=== PATIENT | female | born 1990 | race American Indian/Alaskan Native ===

== ENCOUNTER 2017-06-26 17:30 | Emergency (ER) | payer MEDICAID ==
[2017-06-26] MEDS ORDERED: TYLENOL PO ONE (21:32)
[2017-06-26] MEDS ORDERED: D5NS 1,000 ML IV SCH (22:00)
[2017-06-26 22:48] VITALS: BP 120/69
[2017-06-26 23:30] LABS: Bilirubin,Urine NEG (Negative); Blood,Urine NEG (Negative); Color,Urine Straw (Yellow); Mucus,Urine FEW /HPF; Protein,Urine <15 mg/dL mg/dL (Negative); Urobilinogen,Urine < 2.0 mg/dL (<2.0)
--- NOTE | 2017-06-27 00:27 | Emergency Department Report ---
ED Headache HPI - General Chief Complaint: Headache Stated Complaint: HEADACHE Time Seen by Provider: 06/26/17 21:16 - History of Present Illness Initial Comments: Patient is a 27-year-old Citizen Of The [place] female who is 16 weeks who is presenting with headaches. Patient states that she's had headaches for the last several days. Patient states there is no photophobia and nausea vomiting. Patient has with her had episodes of vomiting for the last several weeks. Patient also recently diagnosed with a UTI was taken several of the Macrobid because of nausea. Patient states these pills were making her feel worse. Patient states the headache is intense in severity global and throbbing. Regarding the patient's patient denies any vaginal bleeding or vaginal discharge or spotting or dysuria at this time Allergies/Adverse Reactions: Allergies No Known Allergies Allergy (Unverified 06/26/17 17:32) Home Medications: Ambulatory Orders Cephalexin [Keflex] 500 mg PO Q12HR 5 Days cap 06/27/17 ED Review of Systems ROS: Stated complaint: HEADACHE Other details as noted in HPI Comment: All other systems reviewed and negative ED Past Medical Hx - Past Medical History Previous Medical History?: No - Surgical History Past Surgical History?: Yes Additional Surgical History: x 2 - Social History Smoking Status: Never Smoker - Medications Home Medications: Home Medications Medication Instructions Recorded Confirmed Last Taken Type Cephalexin [Keflex] 500 mg PO Q12HR 5 Days cap 06/27/17 Unknown Rx ED Physical Exam - General Limitations: No Limitations General appearance: alert, in no apparent distress - Head Head exam: Present: atraumatic, normocephalic - Eye Eye exam: Present: normal appearance - ENT ENT exam: Present: mucous membranes moist - Neck Neck exam: Present: normal inspection - Respiratory Respiratory exam: Present: normal lung sounds bilaterally. Absent: respiratory distress - Cardiovascular Cardiovascular Exam: Present: regular rate, normal rhythm. Absent: systolic murmur, diastolic murmur, rubs, gallop - GI/Abdominal GI/Abdominal exam: Present: soft, normal bowel sounds - Extremities Exam Extremities exam: Present: normal inspection - Back Exam Back exam: Present: normal inspection - Neurological Exam Neurological exam: Present: alert, oriented X3 - Psychiatric Psychiatric exam: Present: normal affect, normal mood - Skin Skin exam: Present: warm, dry, intact, normal color. Absent: rash ED Course Vital Signs 06/26/17 06/26/17 17:32 22:47 Temperature 98.9 F 98.0 F Pulse Rate 92 H 96 H Respiratory 18 20 Rate Blood Pressure 116/71 Blood Pressure 120/69 [Left] O2 Sat by Pulse 100 100 Oximetry ED Medical Decision Making - Lab Data Lab Results 06/26/17 Range/Units 22:46 Urine Color Straw (Yellow) Urine Turbidity Clear (Clear) Urine pH 7.0 (5.0-7.0) Ur Specific [place] 1.008 (1.003-1.030) Urine Protein <15 mg/dl (Negative) mg/dL Urine Glucose (UA) >=500 (Negative) mg/dL Urine Ketones Neg (Negative) mg/dL Urine Blood Neg (Negative) Urine Nitrite Neg (Negative) Urine Bilirubin Neg (Negative) Urine Urobilinogen < 2.0 (<2.0) mg/dL Ur Leukocyte Esterase Tr (Negative) Urine WBC (Auto) 1.0 (0.0-6.0) /HPF Urine RBC (Auto) 3.0 (0.0-6.0) /HPF U Epithel Cells (Auto) 6.0 (0-13.0) /HPF Urine Mucus Few /HPF - Medical Decision Making Patient is 27-year-old Citizen Of [place] female who has been having multiple episodes of vomiting up until today was presented with a headache. Patient will be given a bag of D5 normal saline is presumed the patient has some ketones. Patient also had her blow her urine rechecked for infection there is some trace leuk esterase present. Patient will be switched to Keflex for an additional 5 days. After IV fluids patient is feeling better like to be discharged home. Critical care attestation.: If time is entered above; I have spent that time in minutes in the direct care of this critically ill patient, excluding procedure time. ED Disposition Clinical Impression: Headache Qualifiers: Headache type: unspecified Headache chronicity pattern: acute headache Intractability: not intractable Qualified Code(s): R51 - Headache UTI in Qualifiers: Trimester: second trimester Qualified Code(s): O23.42 - Unspecified infection of urinary tract in , second trimester Disposition: DC-01 TO HOME OR SELFCARE Is pt being admited?: No Does the pt Need Aspirin: No Condition: Stable Instructions: Urinary Tract Infection in Women (ED), Tension Headache (ED) Prescriptions: Cephalexin [Keflex] 500 mg PO Q12HR 5 Days cap Referrals: PRIMARY CARE, [Primary Care Provider] - 3-5 Days
== END 2017-06-27 00:37 | disposition home or self-care (01) ==
LOC: ED 17:30
DX: O26.892 Other specified pregnancy related conditions, second trimester (principal); R51 Headache; O23.42 Unspecified infection of urinary tract in pregnancy, second trimester; Z3A.16 16 weeks gestation of pregnancy
CPT/HCPCS: 81001; 96360; 99283; J7042

== ENCOUNTER 2017-08-07 09:47 | Outpatient (CLI) | payer MEDICAID ==
[2017-08-07] MEDS ORDERED: LACTATED RINGERS 500 ML IV ONE (10:17)
[2017-08-07] MEDS ORDERED: CELESTONE SOLUSPAN IM ONE (11:00)
[2017-08-07 11:32] VITALS: BP 110/67
== END 2017-08-07 12:01 | disposition home or self-care (01) ==
LOC: TRG 09:47
PROVIDERS: ATTEND Obstetrics & Gynecology
DX: O47.02 False labor before 37 completed weeks of gestation, second trimester (principal); Z3A.22 22 weeks gestation of pregnancy
CPT/HCPCS: 96372; J0702

== ENCOUNTER 2017-08-08 12:23 | Outpatient (CLI) | payer MEDICAID ==
[2017-08-08] MEDS ORDERED: CELESTONE SOLUSPAN IM ONE ×2 (12:42→12:44)
[2017-08-08] MEDS ORDERED: LACTATED RINGERS 500 ML IV ONE (12:51)
== END 2017-08-08 12:40 | disposition home or self-care (01) ==
LOC: TRG 12:23
PROVIDERS: ATTEND Obstetrics & Gynecology
DX: O47.02 False labor before 37 completed weeks of gestation, second trimester (principal); Z3A.22 22 weeks gestation of pregnancy
CPT/HCPCS: 96372; J0702

== ENCOUNTER 2017-08-19 11:32 | Inpatient (IN) | payer MEDICAID ==
[2017-08-19] MEDS ORDERED: LACTATED RINGERS 500 ML IV ONE (12:21)
[2017-08-19] MEDS ORDERED: LACTATED RINGERS 1,000 ML ONE ×2 (13:52)
[2017-08-19] MEDS ORDERED: TYLENOL PO PRN (14:18)
[2017-08-19] MEDS ORDERED: LACTATED RINGERS 1,000 ML IV ONE (14:18)
[2017-08-19] MEDS ORDERED: COLACE PO PRN (14:18)
--- NOTE | 2017-08-19 14:43 | History and Physical Report ---
History of Present Illness Date of examination: 08/19/17 Chief complaint: Twin Gestation with iugr and oligohydramnios History of present illness: Direct admit from [facility] for 24week twin gestation with oligohydramnios and IUGR both babies. Patient now states ?leaking for 3 weeks. She was noted to have 3+ urine protein at her [facility] visit on 08/16/2017. She completed a 24h urine specimen yesterday and had PIH bloodwork performed. Urine TP is pending, PIH labs were normal yesterday. Today she was noted to have elevated BP's at [facility]'s office today. Past History : 3 Term Births: 0 Para: 0 Aborta: 2 Elect. Ab: 2 # 1 Delivery date: 03/29/2012 Delivery type: EAB # 2 Delivery date: 03/29/2014 Delivery type: EAB Past Medical History: negative Past Surgical History: negative Past Medical History Anesthesia Complications: negative Anemia: negative Autoimmune Disorder: negative Bleeding Disorder: negative Blood Transfusions: negative Breast Disease: negative Diabetes: negative Heart Disease: negative Hypertension: negative Hepatitis/Liver Disease: negative Kidney Disease/UTI: negative Neurologic/Epilepsy/Migraines: negative Phlebitis/Varicosities: negative Psychiatric: negative Pulmonary Disease/Asthma: negative Thyroid Disease: negative Hospitalizations: negative Surgery (Non-digital marketing assistant): negative Infection History Hx of STD: none HIV Risk Eval: low risk Hepatitis B Risk Eval: low risk Personal hx. of genital herpes: no Partner hx. of genital herpes: no Rash, Viral, or Febrile illness since last LMP? no Varicella/Chicken Pox Status: Previous Disease TB Risk: no Genetic History Congenital Heart Defect: Mom: no Dad: no Nupur Disease: Mom: no Dad: no Thalassemia Mom: no Dad: no Neural Tube Defect Mom: no Dad: no Down's Syndrome Mom: no Dad: no Carlos-Sachs Mom: no Dad: no Sickle Cell Disease/Trait Mom: yes Dad: unknown Hemophilia Mom: no Dad: no Muscular Dystrophy Mom: no Dad: no Cystic Fibrosis Mom: no Dad: no Door Chorea Mom: no Dad: no Mental Retardation Mom: no Dad: no Fragile X Mom: no Dad: no Other Genetic/Chromosomal Disorder Mom: no Dad: no Child w/other defect Mom: no Dad: no Enviromental Exposures Xray Exposure: no Medication, drug, or alcohol use since LMP: no Chemical/Other Exposure: no Exposure to Cat Liter: no Hx of Parvovirus (Fifth Disease): no Active Medications (reviewed today): None Current Allergies (reviewed today): No known allergies Past History - Obstetrical History Expected Date of Delivery: 12/06/17 Actual Gestation: 24 Week(s) 3 Day(s) : 3 Medications and Allergies Allergies Allergy/AdvReac Type Severity Reaction Status Date / Time No Known Allergies Allergy Unverified 06/26/17 17:32 Home Medications Medication Instructions Recorded Confirmed Last Taken Type No Known Home Medications [No 08/07/17 08/07/17 Unknown History Reported Home Medications] Active Meds: Active Medications Acetaminophen (Tylenol) 650 mg PO Q4H PRN PRN Reason: Pain MILD(1-3)/Fever >100.5/MILLER Docusate Sodium (Colace) 100 mg PO Q12H PRN PRN Reason: Constipation Lactated Ringer's (Lactated Ringers) 1,000 mls @ 150 mls/hr IV DIRECT JUANITA Lactated Ringer's (Lactated Ringers) 1,000 mls @ 999 mls/hr IV BOLUS ONE Stop: 08/19/17 15:18 Multivitamins/Iron/Calcium ( Vitamin) 1 each PO QDAY JUANITA Review of Systems All systems: negative Genitourinary: vaginal discharge, leakage of fluid, no vaginal bleeding, no pelvic pain, no contractions - Physical Exam Breasts: Positive: deferred Cardiovascular: Regular rate Lungs: Positive: Clear to auscultation, Normal air movement Abdomen: Positive: normal appearance, soft. Negative: tenderness, guarding Genitourinary (Female): Positive: normal external genitalia, normal perenium Vulva: both: normal Vagina: Positive: discharge (+bv by wet prep), other (negative pool; negative fern. ) Cervix: Negative: lesion Uterus: Positive: enlarged. Negative: tender Extremities: Positive: normal Deep Tendon Reflex Grade: Normal +2 - Obstetrical FHR: auscultation normal Results Result Diagrams: 08/19/17 13:30 08/19/17 13:30 All other labs normal. Ultrasound: report reviewed (from [facility]) Assessment and Plan - Patient Problems (1) 24 weeks gestation of Current Visit: Yes Status: Acute (2) Twin gestation, dichorionic diamniotic Current Visit: Yes Status: Acute Qualifiers: Trimester: second trimester Qualified Code(s): O30.042 - Twin , dichorionic/diamniotic, second trimester (3) Elevated blood pressure complicating , antepartum Current Visit: Yes Status: Acute Plan to address problem: 24h urine protein pending from [facility]'s office repeat PIH labs today watch BP's closely (4) IUGR (intrauterine growth retardation) Current Visit: Yes Status: Acute Plan to address problem: [facility] Received steroids 08/07/2017, rescue course not recommended at this time [facility] visit 08/16/2017 EFW TWIN A: 379g; <1% EFW Twin B: 505g 3% NICU consult pending Extreme prematurity complicated by IUGR and oligohydramnios discussed. She is aware of difficulties and limitations with continuous monitoring. She desires intermittent monitoring at this time. Plan of care explained, questions encouraged and answered. She voiced understanding and agrees with plan of care. (5) Oligohydramnios in navarrete in second trimester Current Visit: Yes Status: Acute Plan to address problem: No evidence of ROM (6) Bacterial vaginosis Current Visit: Yes Status: Acute Plan to address problem: Start flagyl
[2017-08-19 14:51] LABS: Hematocrit 29.3 % (30.3-42.9); Hemoglobin 9.8 gm/dl (10.1-14.3); Mean Corpuscular HGB Conc 33 % (30-34); Mean Corpuscular Hemoglobin 27 pg (28-32); Mean Corpuscular Volume 82 fl (79-97); Platelet Count 274 K/mm3 (140-440); Red Blood Count 3.58 M/mm3 (3.65-5.03); Red Cell Distribution Width 14.7 % (13.2-15.2)
[2017-08-19] MEDS ORDERED: LACTATED RINGERS 1,000 ML IV SCH (15:00)
[2017-08-19 15:11] LABS: Alanine Aminotransferase 8 units/L (7-56); Uric Acid 5.8 mg/dL (3.5-7.6)
[2017-08-19] MEDS: FLAGYL PO SCH (21:56)
[2017-08-20] MEDS: LACTATED RINGERS 1,000 ML IV SCH ×2 (02:05→13:03)
[2017-08-20] MEDS: FLAGYL PO SCH ×2 (05:50→16:27)
--- NOTE | 2017-08-20 07:12 | Consultation ---
History of Present Illness Consult date: 08/19/17 Past History - Obstetrical History : 3 Medications and Allergies Allergies Allergy/AdvReac Type Severity Reaction Status Date / Time No Known Allergies Allergy Unverified 06/26/17 17:32 Home Medications Medication Instructions Recorded Confirmed Last Taken Type No Known Home Medications [No 08/07/17 08/19/17 Unknown History Reported Home Medications] Active Meds: Active Medications Acetaminophen (Tylenol) 650 mg PO Q6H PRN PRN Reason: Pain MILD(1-3)/Fever >100.5/MILLER Docusate Sodium (Colace) 100 mg PO Q12H PRN PRN Reason: Constipation Lactated Ringer's (Lactated Ringers) 1,000 mls @ 150 mls/hr IV DIRECT JUANITA Lactated Ringer's (Lactated Ringers) 1,000 mls @ 125 mls/hr IV DIRECT JUANITA Last Admin: 08/20/17 02:05 Dose: 125 mls/hr Metronidazole (Flagyl) 250 mg PO Q8HR JUANITA Last Admin: 08/20/17 05:50 Dose: 250 mg Multivitamins/Iron/Calcium ( Vitamin) 1 each PO QDAY JUANITA - Vital Signs Vital signs: Vital Signs Pulse Pulse Ox 105 H 99 08/19/17 15:18 08/19/17 15:18 Temp Pulse Resp BP Pulse Ox 98.7 F 92 H 18 150/96 98 08/20/17 04:46 08/20/17 07:14 08/20/17 04:46 08/20/17 07:09 08/20/17 07:14 Results Result Diagrams: 08/19/17 13:30 08/19/17 13:30 Abnormal lab results 08/19/17 08/19/17 Range/Units 13:30 13:30 WBC 19.3 H (4.5-11.0) K/mm3 RBC 3.58 L (3.65-5.03) M/mm3 Hgb 9.8 L (10.1-14.3) gm/dl Hct 29.3 L (30.3-42.9) % MCH 27 L (28-32) pg Creatinine 0.6 L (0.7-1.2) mg/dL Lactate Dehydrogenase 248 H (91-180) units/L All other labs normal. Assessment and Plan AMFM Pt seen Full consult to follow FW
--- NOTE | 2017-08-20 08:03 | Progress Note ---
Assessment and Plan A; Twin gestation @ 24+4 weeks, di/di IUGR/Oligo both babies and recently dx pre-e. Pt resting w/o complaints, denies MILLER/visual changes or epigastric pain. Reports active movement x 2, denies cramping, leaking or bleeding. P: OB u/s for FRANCISCO JAVIER ordered for this morning. will consult Dr. Araujo - Patient Problems (1) Pre-eclampsia Current Visit: Yes Status: Acute Qualifiers: Trimester: second trimester Qualified Code(s): O14.92 - Unspecified pre- eclampsia, second trimester (2) 24 weeks gestation of Current Visit: Yes Status: Acute (3) IUGR (intrauterine growth retardation) Current Visit: Yes Status: Acute (4) Oligohydramnios in navarrete in second trimester Current Visit: Yes Status: Acute (5) Twin gestation, dichorionic diamniotic Current Visit: Yes Status: Acute Qualifiers: Trimester: second trimester Qualified Code(s): O30.042 - Twin , dichorionic/diamniotic, second trimester Subjective - Subjective Date of service: 08/20/17 Principal diagnosis: IUP @ 24+4, di/di twins, IUGR/oligo both babies Patient reports: movement normal, no new complaints, no loss of fluid, no vaginal bleeding, no contractions Objective - Vital Signs Vital Signs: Vital Signs - 12hr 08/19/17 08/19/17 08/19/17 20:09 20:34 21:34 Temperature 98.6 F Pulse Rate 108 H 99 H 96 H Respiratory 18 Rate Blood Pressure 140/93 136/89 137/93 Blood Pressure 140/93 [Right] O2 Sat by Pulse Oximetry 08/19/17 08/19/17 08/20/17 22:34 23:42 00:34 Temperature 98.6 F Pulse Rate 115 H 113 H 108 H Respiratory 20 Rate Blood Pressure 132/89 140/83 140/83 Blood Pressure 140/83 [Right] O2 Sat by Pulse 98 Oximetry 08/20/17 08/20/17 08/20/17 00:35 00:40 00:45 Temperature Pulse Rate 114 H 111 H 106 H Respiratory Rate Blood Pressure Blood Pressure [Right] O2 Sat by Pulse 98 97 98 Oximetry 08/20/17 08/20/17 08/20/17 00:47 00:50 00:55 Temperature Pulse Rate 116 H 99 H 104 H Respiratory Rate Blood Pressure Blood Pressure [Right] O2 Sat by Pulse 92 98 98 Oximetry 08/20/17 08/20/17 08/20/17 01:00 01:05 01:11 Temperature Pulse Rate 104 H 100 H 104 H Respiratory Rate Blood Pressure Blood Pressure [Right] O2 Sat by Pulse 98 98 97 Oximetry 08/20/17 08/20/17 08/20/17 01:15 01:20 01:26 Temperature Pulse Rate 105 H 105 H 107 H Respiratory Rate Blood Pressure Blood Pressure [Right] O2 Sat by Pulse 96 96 96 Oximetry 08/20/17 08/20/17 08/20/17 01:30 01:37 01:42 Temperature Pulse Rate 103 H 111 H 93 H Respiratory Rate Blood Pressure Blood Pressure [Right] O2 Sat by Pulse 98 98 98 Oximetry 08/20/17 08/20/17 08/20/17 01:47 01:52 01:58 Temperature Pulse Rate 95 H 91 H 97 H Respiratory Rate Blood Pressure Blood Pressure [Right] O2 Sat by Pulse 98 98 100 Oximetry 08/20/17 08/20/17 08/20/17 02:02 02:08 02:13 Temperature Pulse Rate 90 89 91 H Respiratory Rate Blood Pressure Blood Pressure [Right] O2 Sat by Pulse 99 100 99 Oximetry 08/20/17 08/20/17 08/20/17 02:17 02:22 02:23 Temperature Pulse Rate 99 H 95 H Respiratory Rate Blood Pressure Blood Pressure [Right] O2 Sat by Pulse 98 98 75 L Oximetry 08/20/17 08/20/17 08/20/17 02:48 02:49 02:50 Temperature Pulse Rate 85 89 85 Respiratory Rate Blood Pressure 155/94 151/93 Blood Pressure [Right] O2 Sat by Pulse 94 Oximetry 08/20/17 08/20/17 08/20/17 03:11 03:34 04:34 Temperature Pulse Rate 115 H 104 H 110 H Respiratory Rate Blood Pressure 133/79 131/74 137/77 Blood Pressure [Right] O2 Sat by Pulse Oximetry 08/20/17 08/20/17 08/20/17 04:46 05:47 05:52 Temperature 98.7 F Pulse Rate 110 H 98 H Respiratory 18 Rate Blood Pressure Blood Pressure [Right] O2 Sat by Pulse 100 98 Oximetry 08/20/17 08/20/17 08/20/17 05:59 06:04 06:09 Temperature Pulse Rate 90 91 H 88 Respiratory Rate Blood Pressure Blood Pressure [Right] O2 Sat by Pulse 100 99 99 Oximetry 08/20/17 08/20/17 08/20/17 06:14 06:19 06:24 Temperature Pulse Rate 89 86 91 H Respiratory Rate Blood Pressure Blood Pressure [Right] O2 Sat by Pulse 98 98 97 Oximetry 08/20/17 08/20/17 08/20/17 06:29 06:34 06:39 Temperature Pulse Rate 94 H 90 100 H Respiratory Rate Blood Pressure 155/106 Blood Pressure [Right] O2 Sat by Pulse 100 98 97 Oximetry 08/20/17 08/20/17 08/20/17 06:44 06:49 06:54 Temperature Pulse Rate 88 89 94 H Respiratory Rate Blood Pressure Blood Pressure [Right] O2 Sat by Pulse 98 98 97 Oximetry 08/20/17 08/20/17 08/20/17 06:59 07:04 07:08 Temperature Pulse Rate 105 H 92 H 93 H Respiratory Rate Blood Pressure 170/108 Blood Pressure [Right] O2 Sat by Pulse 100 98 Oximetry 08/20/17 08/20/17 08/20/17 07:09 07:14 07:34 Temperature Pulse Rate 88 92 H 101 H Respiratory Rate Blood Pressure 150/96 138/96 Blood Pressure [Right] O2 Sat by Pulse 98 98 Oximetry 08/20/17 08/20/17 08/20/17 07:37 07:38 07:41 Temperature 97.4 F L Pulse Rate 51 L 51 L 96 H Respiratory 26 H Rate Blood Pressure Blood Pressure 142/97 [Right] O2 Sat by Pulse 78 L 79 L 96 Oximetry 08/20/17 08/20/17 08/20/17 07:43 07:46 07:48 Temperature Pulse Rate 92 H 103 H 105 H Respiratory Rate Blood Pressure 142/97 Blood Pressure [Right] O2 Sat by Pulse 97 97 Oximetry - Exam Breasts: normal Cardiovascular: Regular rate Lungs: Clear to auscultation, Normal air movement Abdomen: Present: normal appearance, soft Uterus: Present: normal FHR: auscultation normal Uterine Contraction Monitor Mode: External (q4h) Uterine Contraction Pattern: Absent Extremities: normal Deep Tendon Reflex Grade: Normal +2 - Labs Labs: Abnormal Labs 08/19/17 08/19/17 13:30 13:30 WBC 19.3 H RBC 3.58 L Hgb 9.8 L Hct 29.3 L MCH 27 L Creatinine 0.6 L Lactate Dehydrogenase 248 H Laboratory Results - last 24 hr 08/19/17 08/19/17 13:30 13:30 WBC 19.3 H RBC 3.58 L Hgb 9.8 L Hct 29.3 L MCV 82 MCH 27 L MCHC 33 RDW 14.7 Plt Count 274 Creatinine 0.6 L Estimated GFR > 60 Uric Acid 5.8 AST 11 ALT 8 Lactate Dehydrogenase 248 H
[2017-08-20] MEDS: PRENATAL VITAMIN PO SCH (09:00)
--- NOTE | 2017-08-20 09:42 | Event Note ---
Date: 08/20/17 Plan of care d/w pt and all questions were addressed and answered. Will await report from FRANCISCO JAVIER that was repeated this am. I had just been completed when provider was at the bedside. Con't current management as per MFM recommendations.
--- NOTE | 2017-08-20 09:42 | Consultation ---
History of Present Illness Consult date: 08/20/17 Requesting physician: RIZWANA CARBAJAL Reason for consult: prematurity History of present illness: Neonatology consult requested by Dr. Carbajal to nurses' association counselor mother regarding prognosis and anticipated course of this dichorionic-diamniotic twin with EDC 12/06/2017 complicated by recently noted severe IUGR and oligohydramnios as well as maternal proteinuria and possible preeclampsia. No evidence of amniotic fluid leakage, vaginal bleeding or contractions. Mother had previously been noted to have a shortened cervix, and a course of Betamethasone was given 08/07/2017. Mother admitted to L&D 08/19 for further evaluation. Met with mother and discussed with her available survival data for 24 week gestation infants which now approaches ~ 60%, but cautioned her that information pertains to appropriately grown navarrete fetuses. This is different and survival data is limited and predictably much less, especially not knowing the etiology of the current IUGR. Neverthesless, briefly discussed the potential morbidities associated with at this gestation and less than 28 weeks, specifically, high inidence of chronic lung disease, late onset sepsis , necrotizing enterocolitis, ICH/periventricular leukomalacia, retinopathy of prematurity, and neurodevelopmental delay. Mother appeared to understand but did not ask questions. Assured mother that we would follow her with the Obstetricians and were available to answer any questions which arise [place] Documentation - information: Height 5 ft 1 in Medications and Allergies Allergies Allergy/AdvReac Type Severity Reaction Status Date / Time No Known Allergies Allergy Unverified 06/26/17 17:32 Home Medications Medication Instructions Recorded Confirmed Last Taken Type No Known Home Medications [No 08/07/17 08/19/17 Unknown History Reported Home Medications] Active Meds: Active Medications Acetaminophen (Tylenol) 650 mg PO Q6H PRN PRN Reason: Pain MILD(1-3)/Fever >100.5/MILLER Docusate Sodium (Colace) 100 mg PO Q12H PRN PRN Reason: Constipation Lactated Ringer's (Lactated Ringers) 1,000 mls @ 150 mls/hr IV DIRECT JUANITA Lactated Ringer's (Lactated Ringers) 1,000 mls @ 125 mls/hr IV DIRECT JUANITA Last Admin: 08/20/17 02:05 Dose: 125 mls/hr Metronidazole (Flagyl) 250 mg PO Q8HR JUANITA Last Admin: 08/20/17 05:50 Dose: 250 mg Multivitamins/Iron/Calcium ( Vitamin) 1 each PO QDAY JUANITA Exam Vital Signs Pulse Pulse Ox 105 H 99 08/19/17 15:18 08/19/17 15:18 Temp Pulse Resp BP Pulse Ox 97.4 F L 105 H 26 H 142/97 97 08/20/17 07:41 08/20/17 07:48 08/20/17 07:41 08/20/17 07:46 08/20/17 07:48 Results - Laboratory Findings 08/19/17 13:30 08/19/17 13:30 Abnormal lab results 08/19/17 08/19/17 Range/Units 13:30 13:30 WBC 19.3 H (4.5-11.0) K/mm3 RBC 3.58 L (3.65-5.03) M/mm3 Hgb 9.8 L (10.1-14.3) gm/dl Hct 29.3 L (30.3-42.9) % MCH 27 L (28-32) pg Creatinine 0.6 L (0.7-1.2) mg/dL Lactate Dehydrogenase 248 H (91-180) units/L
--- NOTE | 2017-08-20 12:35 | Event Note ---
Date: 08/20/17 Pt aware of plan of care to continue w/ IVF and intermittent monitoring per Dr. Man with [facility]. Will recheck FRANCISCO JAVIER and doppler studies in the AM. All questions addressed, verbalized understanding.
[2017-08-20] MEDS: TYLENOL PO PRN (18:55)
[2017-08-21] MEDS ORDERED: FLAGYL ONE (00:19)
[2017-08-21] MEDS: FLAGYL PO SCH ×2 (00:23→16:00)
[2017-08-21] MEDS: TYLENOL PO PRN (02:42)
[2017-08-21] MEDS ORDERED: POLYCILLIN/NS 2 GM/100 ML 2 GM/100 ML BAG IV ONE (05:53)
[2017-08-21] MEDS ORDERED: POLYCILLIN/NS 2 GM/100 ML 2 GM/100 ML BAG IV SCH (06:00)
--- NOTE | 2017-08-21 06:20 | Event Note ---
Date: 08/21/17 (pt states pain and pressure are present with each ctx) light brown fluid noted on pad. FHTs X 2
[2017-08-21] MEDS ORDERED: PITOCin/NS 20 UNIT/1000ML DRIP 20,000 MILLIUNITS/1,000 ML BAG IV ONE (06:38)
[2017-08-21] MEDS ORDERED: REGLAN ONE ×2 (06:39→07:29)
[2017-08-21] MEDS ORDERED: BICITRA ONE (06:39)
[2017-08-21] MEDS ORDERED: PEPCID IV ONE ×2 (06:39→06:41)
[2017-08-21] MEDS ORDERED: REGLAN IV ONE (06:41)
[2017-08-21] MEDS ORDERED: BICITRA PO ONE (06:41)
[2017-08-21] MEDS ORDERED: DIPRIVAN 10 MG/ML IV ONE (06:42)
[2017-08-21] MEDS ORDERED: WATER FOR IRRIG STERILE IR ONE (06:50)
[2017-08-21] MEDS ORDERED: NACL 0.9% IR ONE (06:50)
[2017-08-21] MEDS ORDERED: ANCEF/STERILE WATER 2 GM/20 ML 2 GM/20 ML SYRINGE IV ONE (06:59)
[2017-08-21] MEDS ORDERED: LACTATED RINGERS 1,000 ML IV SCH (07:00)
[2017-08-21] MEDS ORDERED: PITOCin/NS 20 UNIT/1000ML DRIP 20 UNITS/1,000 ML BAG IV SCH (07:00)
[2017-08-21] MEDS ORDERED: QUELICIN ONE (07:02)
[2017-08-21] MEDS ORDERED: SUBLIMAZE ONE (07:04)
[2017-08-21] MEDS ORDERED: ZOFRAN ONE (07:29)
[2017-08-21] MEDS ORDERED: CUROSURF ONE (07:30)
[2017-08-21] MEDS ORDERED: MAGNESIUM SULFATE 40GM/1000ML 40 GM/1,000 ML BAG IV ONE (08:21)
[2017-08-21] MEDS ORDERED: ZOFRAN IV PRN ×2 (08:29→11:14)
[2017-08-21] MEDS ORDERED: NARCAN 0.4 MG/1 ML IV PRN (08:29)
[2017-08-21] MEDS ORDERED: PHENERGAN PO PRN (08:29)
[2017-08-21] MEDS ORDERED: PHENERGAN PR PRN (08:29)
[2017-08-21] MEDS ORDERED: DILAUDID IV PRN (08:29)
[2017-08-21] MEDS ORDERED: APRESOLINE IV NR (08:30)
[2017-08-21 08:39] LABS: Hematocrit 30.2 % (30.3-42.9); Hemoglobin 10.6 gm/dl (10.1-14.3); Mean Corpuscular HGB Conc 35 % (30-34); Mean Corpuscular Hemoglobin 29 pg (28-32); Mean Corpuscular Volume 82 fl (79-97); Red Blood Count 3.67 M/mm3 (3.65-5.03); Red Cell Distribution Width 15.3 % (13.2-15.2)
[2017-08-21] MEDS ORDERED: SODIUM CHLORIDE FLUSH SYRINGE 10 ML IV NR ×2 (09:00→11:14)
[2017-08-21] MEDS ORDERED: MAGNESIUM SULFATE 4GM/100ML 4 GM/100 ML BAG IV NR (09:00)
[2017-08-21] MEDS ORDERED: MAGNESIUM SULFATE 40GM/1000ML 40 GM/1,000 ML BAG IV SCH (09:00)
[2017-08-21] MEDS ORDERED: TORADOL IV NR (09:15)
[2017-08-21 09:32] LABS: Platelet Count 174 K/mm3 (140-440)
--- NOTE | 2017-08-21 10:30 | Operative Report ---
Operative Report Operative Report: Date: 08/21/2017 Preoperative diagnosis: 1. Intrauterine at 24 weeks 2. Twin gestation dichorionic diamniotic (transverse/transverse by ultrasound performed yesterday) 3. Preeclampsia 4. Active labor Postoperative diagnosis: 1. Intrauterine at 24 weeks 2. Twin gestation dichorionic diamniotic 3. Preeclampsia 4. Active labor Procedure: Low uterine transverse incision for delivery Surgeon: Carmen Carbajal MD Archery Equipment Repairer: Cherelle Brizuela Anesthesia: Gen. anesthesia Anesthesiologist: Yolette Ocampo M.D. Estimated blood loss: 500 mL Urine out: [] mL Findings: Twin A: Live born female . Weight 0 lbs. 13 oz. Apgars 3 at 1 minute and 8 at 5 minutes. . Twin B: Liveborn female . Weight 1 ib. 2.5 oz. Apgars 3 at 1 minute and 7 at 5 minutes. Uterus normal, tubes normal, ovaries normal Procedure:: Patient requested analgesia due to contractions. On arrival in the room patient was complaining of severe pain, she was informed that she will require should she have dilation of her cervix. On exam and parts palpated in the cervix decision was made to proceed emergently with delivery. She was taken to the OR and placed in the left lateral tilt position, and prepped and draped in the usual sterile fashion. She was taken to the OR where general anesthesia was induced. Timeout was performed, a Pfannenstiel incision was made and extended to the fascia which was incised and extended in the lateral directions. The overlying fascia was sharply dissected away from the underlying rectus muscles in the superior and inferior directions. The midline was entered bluntly. The vesicouterine fold was incised and with blunt dissection the bladder flap was created. A transverse incision was made in the lower uterine segment and extended in superiolateral direction with finger fractionation. Scant amount of white fluid was noted. The infant was delivered from cephalic position. Cord was doubly clamped and cut. The was given to /resuscitation team present. The membranes were then ruptured on twin B who was also delivered from cephalic position. Cord was doubly clamped and cut and the was given to the resuscitation team present. The placentas were manually extracted. The uterus was then exteriorized and cleared of any further products of conception or placental tissue. The incision was reapproximated using 0 Vicryl in a running interlocking stitch. Grossly normal uterus, tubes and ovaries were noted. Once hemostasis was noted, the uterus was allowed back into the pelvic cavity. The pelvis was irrigated with warm normal saline. Again hemostasis was noted . Surgicel applied for further hemostasis. Interceed was then placed to prevent adhesions. Then attention was turned to the rectus muscles. The rectus muscles reapproximated using 0 Vicryl in a simple interrupted stitch x 3. Once hemostasis was noted, the fascia was reapproximated using 0 Vicryl running stitch fashion. Once hemostasis was noted skin incision was reapproximated using 4-0 Vicryl on a Carlos A needle in a subcuticular manner. Counts were correct 3. Patient tolerated procedure well state recovery room in stable condition.
[2017-08-21] MEDS ORDERED: LACTATED RINGERS 1,000 ML ONE (10:40)
[2017-08-21] MEDS: LACTATED RINGERS 1,000 ML IV SCH (10:40)
[2017-08-21] MEDS ORDERED: MILK OF MAGNESIA PO PRN (11:14)
[2017-08-21] MEDS ORDERED: TUCKS PAD TP PRN (11:14)
[2017-08-21] MEDS ORDERED: DULCOLAX PR PRN (11:14)
[2017-08-21] MEDS ORDERED: LANSINOH TP PRN (11:14)
[2017-08-21] MEDS ORDERED: CALCIUM GLUCONATE IV PRN (11:14)
[2017-08-21] MEDS ORDERED: HEMABATE IM ONE (12:00)
[2017-08-21] MEDS ORDERED: CYTOTEC PR ONE (12:00)
[2017-08-21] MEDS ORDERED: CALCIUM CHLORIDE 1,000 MG in NACL 0.9% 50 ML IV PRN (12:00)
[2017-08-21] MEDS: TYLENOL PO SCH ×2 (13:00→18:30)
[2017-08-21] MEDS: TORADOL IV SCH ×2 (15:40→21:40)
[2017-08-21] MEDS ORDERED: MORPHINE IV ONE ×2 (16:56→18:00)
[2017-08-21] MEDS ORDERED: MORPHINE ONE (16:57)
[2017-08-21 22:49] LABS: Hematocrit 29.3 % (30.3-42.9); Hemoglobin 9.9 gm/dl (10.1-14.3)
[2017-08-22] MEDS: FLAGYL PO SCH ×3 (00:12→17:52)
[2017-08-22] MEDS: TYLENOL PO SCH ×2 (00:13→06:30)
[2017-08-22] MEDS: TORADOL IV SCH ×2 (03:32→08:27)
[2017-08-22] MEDS ORDERED: BOOSTRIX IM ONE (06:00)
--- NOTE | 2017-08-22 06:11 | Progress Note ---
Assessment and Plan - Patient Problems (1) Pre-eclampsia Onset Date: ~08/21/17 Current Visit: Yes Status: Acute Qualifiers: Trimester: second trimester Qualified Code(s): O14.92 - Unspecified pre- eclampsia, second trimester Plan to address problem: Pt A&O X 3 Pt states she feels better today than she did yesterday BP 130s/80s Pulse 90s, afebrile. H&H stable 12/25. MGSO4 continues @ 2gm/hr due to be d/c @ 0700. Doing well s/p c/s; PreE P: continue pathway. D/C MGSO4, garay, and remove dressing this AM @ 0700. Advance diet and activity as tolerated. (2) delivery delivered Onset Date: ~08/21/17 Current Visit: Yes Status: Acute Subjective - Subjective Date of service: 08/22/17 (pt states she feels better) Principal diagnosis: Day#1 s/p section; di/di twins @ 24w; PPROM; labor Patient reports: voiding normally (light yellow urine), pain well controlled : in NICU Objective - Vital Signs Latest vital signs: Vital Signs Temp Pulse Resp BP BP Pulse Ox 08/22/17 05:30 98.6 F 98 H 18 131/83 08/22/17 04:15 98.0 F 92 H 18 136/83 96 08/22/17 02:22 98.2 F 96 H 18 131/85 97 08/22/17 00:00 98.0 F 95 H 20 130/86 96 08/21/17 22:02 98.6 F 95 H 20 143/91 96 08/21/17 20:15 98.2 F 97 H 22 142/96 97 08/21/17 18:16 98.0 F 99 H 24 137/97 94 08/21/17 16:09 99.0 F 107 H 28 H 132/92 93 08/21/17 14:16 98.4 F 104 H 36 H 130/86 96 08/21/17 11:17 98.3 F 72 20 127/71 100 08/21/17 09:55 98.8 F 113 H 24 152/92 143/90 08/21/17 09:50 120 H 30 H 144/89 08/21/17 09:45 121 H 28 H 141/91 08/21/17 09:40 119 H 28 H 155/94 95 08/21/17 09:35 118 H 30 H 143/91 95 08/21/17 09:30 99.2 F 117 H 28 H 145/94 93 08/21/17 09:27 34 H 08/21/17 09:15 120 H 28 H 145/93 93 08/21/17 09:00 123 H 36 H 152/94 93 08/21/17 08:50 114 H 32 H 156/95 94 08/21/17 08:45 118 H 166/101 08/21/17 08:34 117 H 29 H 166/111 91 08/21/17 08:18 118 H 31 H 162/101 94 08/21/17 08:02 134 H 10 L 08/21/17 08:00 98.7 F 134 H 32 H 160/96 Intake and Output 08/21/17 08/21/17 08/22/17 14:59 22:59 06:59 Intake Total 900 120 240 Output Total 350 1800 1100 Balance 550 -5029 -860 Intake: IV 900 Oral 120 240 Output: Urine 350 1800 1100 Indwelling Catheter 1800 1100 Other: Total, Intake Amount 120 240 Total, Output Amount 800 800 Estimated Blood Loss 500 - Exam Breasts: Present: normal Cardiovascular: Present: Regular rate Lungs: Present: Clear to auscultation, Normal air movement Abdomen: Present: normal appearance, soft, normal bowel sounds Uterus: Present: normal, firm, fundal height below umbilicus Extremities: Present: edema Deep Tendon Reflex Grade: Normal +2 Incision: Present: normal, dry, intact, dressed (to be removed this AM) - Labs Labs: Abnormal lab results 08/21/17 08/21/17 08/21/17 Range/Units 07:31 14:38 21:41 WBC 22.1 H (4.5-11.0) K/mm3 Hgb 9.9 L (10.1-14.3) gm/dl Hct 30.2 L 29.3 L (30.3-42.9) % MCHC 35 H (30-34) % RDW 15.3 H (13.2-15.2) % Magnesium 5.00 H (1.7-2.3) mg/dL 08/21/17 08/22/17 Range/Units 21:41 00:45 WBC (4.5-11.0) K/mm3 Hgb (10.1-14.3) gm/dl Hct (30.3-42.9) % MCHC (30-34) % RDW (13.2-15.2) % Magnesium 5.80 H 5.80 H (1.7-2.3) mg/dL
[2017-08-22] MEDS: LACTATED RINGERS 1,000 ML IV SCH (08:25)
[2017-08-22] MEDS: PRENATAL VITAMIN PO SCH (10:19)
[2017-08-22] MEDS ORDERED: PERCOCET 5/325 PO PRN (12:18)
[2017-08-22] MEDS: MOTRIN PO SCH (17:53)
[2017-08-22] MEDS ORDERED: MYLICON PO PRN (22:14)
[2017-08-23] MEDS: MOTRIN PO SCH ×2 (00:09→06:23)
[2017-08-23] MEDS: FLAGYL PO SCH (00:14)
[2017-08-23] MEDS ORDERED: FLAGYL PO SCH (08:00)
[2017-08-23] MEDS ORDERED: MOTRIN PO SCH (09:00)
[2017-08-23] MEDS: PRENATAL VITAMIN PO SCH (10:00)
[2017-08-23] MEDS ORDERED: NORMODYNE PO SCH (10:00)
--- NOTE | 2017-08-23 14:27 | Discharge Summary ---
Providers - Providers Date of Admission: 08/19/17 11:33 Date of discharge: 08/23/17 Attending physician: RIZWANA CHAPIN 08/21/17 11:14 Consult to Grinder Operator [CONS] Routine Reason For Exam: assistance with , SNS Primary care physician: RIZWANA CHAPIN Hospitalization Reason for admission: active labor, IUP - Procedure: section Disposition: DC-30 STILL A PATIENT Plan - Discharge Medications Prescriptions: Ibuprofen [Motrin 800 MG tab] 800 mg PO TID PRN #30 tablet PRN Reason: Pain oxyCODONE /ACETAMINOPHEN [Percocet 5/325 mg] 1 - 2 tab PO Q4HR PRN #30 tablet PRN Reason: Pain - Provider Discharge Summary Additional instructions: [] Smoking cessation referral if applicable(refer to patient education folder for contact #) [] Refer to [facility] Booklet Call your doctor immediately for: * Fever > 100.5 * Heavy vaginal bleeding ( >1 pad per hour) * Severe persistent headache * Shortness of breath * Reddened, hot, painful area to leg or breast * Drainage or odor from incision. * Keep incision clean and dry at all times and follow doctor's instructions regarding bathing/showering - Follow up plan Follow up: RIZWANA CHAPIN MD [Primary Care Provider] - 7 Days Forms: [facility] Discharge Summary
[2017-08-23 15:47] VITALS: BP 143/90
--- NOTE | 2017-08-24 07:28 | Post Anesthesia Evaluation ---
- Post Anesthesia Evaluation Patient Participated: Yes Airway Patent: Yes Stable Respiratory Function: Yes Nausea/Vomiting: No Temp > 96.8F: Yes Pain Manageable: Yes Adequeate Hydration: Yes Anesthesia Complications: No Block Receding Appropriately: Yes Patient on Ventilator: No
--- NOTE | 2017-08-25 12:54 | Ultrasound Report ---
OB LIMITED - TWINS INDICATION: 24 week twins. IUGR/polyhydramnios x2. COMPARISON: None similar. TECHNIQUE: Transabdominal grayscale ultrasound with Doppler interrogation. Gestation: Twins BABY A: Position: Transverse - head maternal right Amniotic Fluid: Twin - largest vertical pocket 1.9 cm (2-8 cm Normal) Heart Rate: 163 BPM BABY B: Position: Transverse - head maternal right Amniotic Fluid: Twin - largest vertical pocket 2.3 cm (2-8 cm Normal) Heart Rate: 158 BPM CONCLUSION: Twin gestations with details, as above. Thank you for the opportunity to participate in this patient's care.
== END 2017-08-23 17:45 | disposition home or self-care (01) | DRG 765 ==
LOC: TRG 11:32 → LD 11:33 → TRG 11:33 → OB 08-21 10:52
PROVIDERS: ADMIT Obstetrics & Gynecology; ATTEND Obstetrics & Gynecology
PROC: 10D00Z1 Extraction of Products of Conception, Low, Open Approach (ICD-10-PCS; principal; 2017-08-21)
DX: O11.4 Pre-existing hypertension with pre-eclampsia, complicating childbirth (principal); O75.3 Other infection during labor; O41.02X0 Oligohydramnios, second trimester, not applicable or unspecified; O30.042 Twin pregnancy, dichorionic/diamniotic, second trimester; O36.5920 Maternal care for other known or suspected poor fetal growth, second trimester, not applicable or unspecified; B96.89 Other specified bacterial agents as the cause of diseases classified elsewhere; Z3A.24 24 weeks gestation of pregnancy; Z37.2 Twins, both liveborn
CPT/HCPCS: 36415; 76815; 82565; 83615; 83735; 84450; 84460; 84550; 85014; 85018; 85027; 86592; 86706; 86762; 86850; 86900; 86901; 87806; 88305; C1765; J0290; J0330; J0360; J0690; J1170; J1885; J2270; J2405; J2590; J2704; J2765; J3010; J3475; J7120